=== PATIENT | male | born 1950 | race Caucasian/White ===

== ENCOUNTER 2018-11-16 06:02 | Day surgery (SDC) | payer BC ==
[~2018-11-16] VITALS: Ht 174 cm; Wt 73.9 kg
[~2018-11-16 06:02] MED LIST: ALEVE220 MG PO; ANTI INFLAM TOP; CIPR500 PO; Calcium-Mag-Zi1 EACH PO; FISH OIL PO; Hair, Skin & N1 EACH PO; LOPE2C PO; MELO7.5 PO; MULVITMIND
--- NOTE | 2018-11-16 06:49 | NUR ---
Ambulatory in Day Surgery. Gait steady. History, Chart, Medications and Allergies reviewed before start of procedure.Patient confirms NPO status and agrees with scheduled surgery. Patient reports completing Chlorhexadine shower X2 prior to admission to hospital.Surgical site prepped with 2% Chlorhexidine cloth wipe.
--- NOTE | 2018-11-16 09:27 | NUR ---
RECEIVED REPORT FROM ASSISTANT MANAGER [employer] (DAVON). PT IS AWAKE AND JOKING WITH STAFF. VSS. [facility] [employer] [facility]
--- NOTE | 2018-11-16 09:35 | NUR ---
PT IS DOING WELL SITTING UP DRINKING WATER. VERY PLEASANT. DENIES PAIN/NAUSEA. READY FOR TO BE BROUGHT BACK.
--- NOTE | 2018-11-16 09:57 | NUR ---
Discharge instructions reviewed with patient. Patient verbalizes understanding. Copy given to patient to take home. HAS PT RX. PT HAS NO QUESTIONS OR CONCERNS WITH D/C HOME. PT HAS NO C/O PAIN DOES NOT WANT PAIN PILL OR ANYTING TO EAT. TOLERATED WATER. Patient States Post-Procedure ride home has been arranged. PT GETTING DRESSED. HAS ALL PERSONAL BELONGINGS. Discharged via wheelchair to private car for ride home.
== END 2018-11-16 22:54 | disposition home or self-care (01) ==
LOC: ORSCMMR 06:02 → ORD 07:30 → ORSCMMR 22:54
PROVIDERS: Surgery
PROC: 0YU50JZ Supplement Right Inguinal Region with Synthetic Substitute, Open Approach (ICD-10-PCS; principal; 2018-11-16 07:30)
DX: K40.90 Unilateral inguinal hernia, without obstruction or gangrene, not specified as recurrent (principal)
CPT/HCPCS: C1781; J0690; J1100; J1885; J2250; J2405; J3010; J7120